=== PATIENT | female | born 1955 | race Caucasian/White ===

== ENCOUNTER → 2019-08-25 10:56 | Outpatient (BNVA) | payer BC, SELFPAY | PROVIDERS: Family Provider Nurse Practitioner; PCP Nurse Practitioner; Visit Provider Nurse Practitioner Family | DX: Z00.00 Encounter for general adult medical examination without abnormal findings (principal); I10 Essential (primary) hypertension; Z79.890 Hormone replacement therapy; F32.9 Major depressive disorder, single episode, unspecified | CPT/HCPCS: 80053; 80061; 84443; 85025 ==

== ENCOUNTER → 2020-11-25 13:28 | Outpatient (BNVA) | payer BC, SELFPAY | PROVIDERS: Family Provider Nurse Practitioner; PCP Nurse Practitioner; Visit Provider Family Medicine | DX: Z12.31 Encounter for screening mammogram for malignant neoplasm of breast (principal); M81.0 Age-related osteoporosis without current pathological fracture; I10 Essential (primary) hypertension; Z01.419 Encounter for gynecological examination (general) (routine) without abnormal findings | CPT/HCPCS: 80053; 80061; 84443; 85025; 88175 ==

== ENCOUNTER 2021-01-02 13:49 | Outpatient (CLI) | payer BC, SELFPAY ==
--- NOTE | 2021-01-02 13:54 | XR_ITS ---
WS: [id number] DEXA (DUAL ENERGY X-RAY ABSORPTIOMETRY) Bone mineral density was performed using a mygola machine. HISTORY: M81.0 - Age-related osteoporosis without current pathological fracture. COMPARISON: None darren ilable. Lumbar spine BMD (L1-L4): 1.058 g/cm2 T score: -1.0 Z score: 0.2 Total hip BMD: Left: 0.850 g/cm2. T score: -1.2 Z score: -0.3 Right: 0.849 g/cm2. T score: -1.3 Z score: -0.3 10 year probability of a major osteoporotic fracture is 10%. Mild RIGHT curvature thoracic spine. XR/XR DEXA axial skeleton* [id number] IMPRESSION: OSTEOPENIA based upon the WHO classification for females.
== END 2021-01-02 13:50 | disposition home or self-care (01) ==
PROVIDERS: PCP Family Medicine; Visit Provider Family Medicine
DX: M81.0 Age-related osteoporosis without current pathological fracture (principal); M85.88 Other specified disorders of bone density and structure, other site
CPT/HCPCS: 77080

== ENCOUNTER → 2021-11-27 09:49 | Outpatient (BNVA) | payer MEDICARE, SELFPAY | PROVIDERS: PCP Family Medicine; Visit Provider Family Medicine | DX: Z00.00 Encounter for general adult medical examination without abnormal findings (principal); L71.9 Rosacea, unspecified; I10 Essential (primary) hypertension; F32.9 Major depressive disorder, single episode, unspecified; Z78.9 Other specified health status | CPT/HCPCS: 80053; 80061; 84443; 85025 ==

== ENCOUNTER → 2022-11-30 11:35 | Outpatient (BNVA) | payer MEDICARE, SELFPAY | PROVIDERS: PCP Family Medicine; Visit Provider Family Medicine | DX: Z00.00 Encounter for general adult medical examination without abnormal findings (principal); E78.5 Hyperlipidemia, unspecified; I10 Essential (primary) hypertension; F32.9 Major depressive disorder, single episode, unspecified; Z01.419 Encounter for gynecological examination (general) (routine) without abnormal findings | CPT/HCPCS: 80053; 80061; 84443; 85025 ==

== ENCOUNTER → 2023-11-03 11:45 | Outpatient (BNVA) | payer MEDICARE, SELFPAY | PROVIDERS: PCP Family Medicine; Visit Provider Family Medicine | DX: I10 Essential (primary) hypertension (principal); E78.5 Hyperlipidemia, unspecified; F32.9 Major depressive disorder, single episode, unspecified; Z00.00 Encounter for general adult medical examination without abnormal findings | CPT/HCPCS: 80053; 80061; 84443; 85025 ==

== ENCOUNTER → 2024-07-27 09:36 | Outpatient (BNVA) | payer MEDICARE, SELFPAY | PROVIDERS: PCP Nurse Practitioner Family; Visit Provider Nurse Practitioner Family | DX: I10 Essential (primary) hypertension (principal); F32.9 Major depressive disorder, single episode, unspecified | CPT/HCPCS: 80053; 80061; 84443; 85025 ==